=== PATIENT | female | born 1965 | race Two or more races ===

== ENCOUNTER 2022-11-29 09:44 | Outpatient (CLI) | payer OTHER | END 2022-11-29 09:56 | disposition home or self-care (01) | LOC: SONOGRAMA 09:44 | PROVIDERS: ATTEND Obstetrics & Gynecology | DX: N84.0 Polyp of corpus uteri (principal) ==

== ENCOUNTER 2023-01-14 10:02 | Day surgery (SDC) | payer OTHER ==
[~2023-01-14] VITALS: Ht 154.9 cm; Wt 64.9 kg
[~2023-01-14 10:02] MED LIST: LIPITOR20 MG PO; VASOTEC2.5 MG PO
== END 2023-01-14 22:45 | disposition home or self-care (01) ==
LOC: CIR.AMB 10:02
PROVIDERS: ATTEND Obstetrics & Gynecology
DX: N95.0 Postmenopausal bleeding (principal); N84.0 Polyp of corpus uteri; Z20.822 Contact with and (suspected) exposure to COVID-19; I10 Essential (primary) hypertension